=== PATIENT | female | born 1995 | race Two or more races ===

== ENCOUNTER 2020-04-08 22:14 | Emergency (ER) | payer BC, OTHER ==
[~2020-04-08] VITALS: Ht 167.6 cm; Wt 81.6 kg
[2020-04-08 23:10] VITALS: BP 125/68
== END 2020-04-09 00:03 | disposition home or self-care (01) ==
LOC: ER 22:15
DX: S93.401A Sprain of unspecified ligament of right ankle, initial encounter (principal); W13.3XXA Fall through floor, initial encounter; Y93.41 Activity, dancing; Y92.89 Other specified places as the place of occurrence of the external cause; Y99.8 Other external cause status
CPT/HCPCS: 73610